=== PATIENT | female | born 1995 | race Caucasian/White ===

== ENCOUNTER 2018-04-06 05:26 | Emergency (ER) | payer OTHER ==
[2018-04-06] MEDS ORDERED: Pepcid 20 MG VIAL IV ONE ×2 (05:49→05:53)
[2018-04-06] MEDS ORDERED: Zofran 4 MG/2 ML VIAL IV ONE ×2 (05:49→07:23)
[2018-04-06] MEDS ORDERED: Sodium Chloride 0.9% 1000 ML 1,000 ML IV STA ×2 (05:49→06:59)
[2018-04-06] MEDS ORDERED: Zofran 4 MG/2 ML VIAL ONE ×2 (05:53→07:27)
[2018-04-06] MEDS ORDERED: Sodium Chloride 0.9% 1000 ML 1,000 ML ONE ×2 (05:53→07:01)
--- NOTE | 2018-04-06 05:58 | ERPHSYRPT ---
- History of Present Illness Historian: patient Exam Limitations: no limitations Patient Subjective Stated Complaint: Pt arrives to ER with c/o N/V since 2199 last night stating ate Chicken Salad and Lobster Bites aroudn 1800 yesterday. Pt states vomited multiple times, but did not some blood mixed in with food in prior emesis but en route here to ER, vomited without blood. Denies pain, fever , diarrhea or any other sx. Triage Nursing Assessment: see above Timing/Duration: hour(s) (8) Activities at Onset: none Quality: aching Abdominal Pain Onset Location: generalized abdomen Pain Radiation: no radiation Severity of Pain-Max: moderate Severity of Pain-Current: moderate Modifying Factors: Improves With: eating Associated Symptoms: loss of appetite, nausea, vomiting Previous symptoms: no prior history <NAZ SORIANO - Last Filed: 04/06/18 07:05> <MARTY HADDAD - Last Filed: 04/06/18 08:50> - History of Present Illness Time Seen by Provider: 04/06/18 05:44 Physician History: Pt states she had chicken at [employer] last night, started vomiting at 22:00 PM. She has vomited x17, denies abdominal pain, chest pain, fever, chills, diarrhea or urinary complaints. She had her last MP 2 weeks ago, denies vaginal bleeding or discharge. (NAZ SORIANO) Allergies/Adverse Reactions: No Known Drug Allergies Allergy (Unverified 04/06/18 05:39) Home Medications: Clomiphene Citrate [Serophene] 50 mg PO BID 04/06/18 [History] - Review of Systems Constitutional: No Symptoms Abdominal/Gastrointestinal: Nausea, Vomiting All Other Systems: Reviewed and Negative <NAZ SORIANO - Last Filed: 04/06/18 07:05> - Past Medical History Pertinent Past Medical History: Yes - Past Surgical History Past Surgical History: Yes Gastrointestinal: Cholecystectomy - Social History Smoking Status: Never smoker Exposure to second hand smoke: No Drug Use: none Patient Lives Alone: No - Female History Hx Last Menstrual Period: March 16 Hx Now: No <NAZ SORIANO - Last Filed: 04/06/18 07:05> - Physical Exam General Appearance: no apparent distress Eye Exam: eyes nml inspection Ears, Nose, Throat Exam: normal ENT inspection, moist mucous membranes Neck Exam: normal inspection, non-tender, supple Respiratory Exam: normal breath sounds, lungs clear Cardiovascular Exam: regular rate/rhythm, normal heart sounds, normal peripheral pulses, No murmur Gastrointestinal/Abdomen Exam: soft, tenderness (mild, generalized), No distention, No mass, No guarding, No ecchymosis, No pulsatile mass, No rebound, No hernia, No organomegaly Pelvic Exam: not done Back Exam: normal inspection, No CVA tenderness Extremity Exam: normal inspection Neurologic Exam: alert, oriented x 3, normal mood/affect Skin Exam: normal color, warm, dry, No rash Lymphatic Exam: No adenopathy SpO2 Interpretation: normal SpO2: 96 Oxygen Delivery: Room Air <NAZ SORIANO - Last Filed: 04/06/18 07:05> - Nursing Vital Signs Nursing Vital Signs: Initial Vital Signs Temperature 98.4 F 04/06/18 05:33 Pulse Rate 117 H 04/06/18 05:33 Respiratory Rate 18 04/06/18 05:33 Blood Pressure 149/84 04/06/18 05:33 O2 Sat by Pulse Oximetry 96 04/06/18 05:33 Pain Scale Pain Intensity 0 - Course Nursing assessment & vital signs reviewed: Yes <NAZ SORIANO - Last Filed: 04/06/18 07:05> - Radiology Exams Chest X-ray Interpretation: Teleradiologist Report, Negative (per Dr Donahue) Abdomen X-ray Interpretation: Teleradiologist Report, Negative (per Dr Donahue) <MARTY HADDAD - Last Filed: 04/06/18 08:50> Ordered Tests: Active Orders 24 hr Category Date Time Status IV Insertion STAT Care 04/06/18 05:49 Active OBSTR/ACUTE ABDOMEN SERIES Stat Exams 04/06/18 05:49 Taken AMYLASE Stat Lab 04/06/18 05:50 Completed CBC W DIFF Stat Lab 04/06/18 05:50 Completed CMP Stat Lab 04/06/18 05:50 Completed CULTURE,URINE Stat Lab 04/06/18 07:10 Received HCG QUALITATIVE,SERUM Stat Lab 04/06/18 05:50 Completed LIPASE Stat Lab 04/06/18 05:50 Completed Lactic Acid Stat Lab 04/06/18 05:48 Results UA W/ MICROSCOPIC Stat Lab 04/06/18 07:10 Completed Medication Summary Discontinued Medications Generic Name Dose Route Start Last Admin Trade Name Lawson PRN Reason Stop Dose Admin Famotidine 20 mg 04/06/18 05:49 04/06/18 06:00 Pepcid 20 Mg Vial IV 04/06/18 05:50 20 mg STAT ONE Administration Famotidine Confirm 04/06/18 05:53 Pepcid 20 Mg Vial Administered 04/06/18 05:54 Dose 20 mg IV .STK-MED ONE Sodium Chloride 1,000 mls @ 999 mls/hr 04/06/18 05:49 04/06/18 06:00 Sodium Chloride 0.9% 1000 Ml IV 04/06/18 06:49 999 mls/hr .Q1H1M STA Administration Sodium Chloride Confirm 04/06/18 05:53 Sodium Chloride 0.9% 1000 Ml Administered 04/06/18 05:54 Dose 1,000 mls @ ud .ROUTE .STK-MED ONE Sodium Chloride 1,000 mls @ 999 mls/hr 04/06/18 06:59 04/06/18 07:29 Sodium Chloride 0.9% 1000 Ml IV 04/06/18 07:59 999 mls/hr .Q1H1M STA Administration Sodium Chloride Confirm 04/06/18 07:01 Sodium Chloride 0.9% 1000 Ml Administered 04/06/18 07:02 Dose 1,000 mls @ ud .ROUTE .STK-MED ONE Metoclopramide HCl 10 mg 04/06/18 06:59 04/06/18 07:04 Reglan 10 Mg/2 Ml IV 04/06/18 07:00 10 mg STAT ONE Administration Metoclopramide HCl Confirm 04/06/18 07:01 Reglan 10 Mg/2 Ml Administered 04/06/18 07:02 Dose 10 mg .ROUTE .STK-MED ONE Ondansetron HCl 4 mg 04/06/18 05:49 04/06/18 06:00 Zofran 4 Mg/2 Ml Vial IV 04/06/18 05:50 4 mg STAT ONE Administration Ondansetron HCl Confirm 04/06/18 05:53 Zofran 4 Mg/2 Ml Vial Administered 04/06/18 05:54 Dose 4 mg .ROUTE .STK-MED ONE Ondansetron HCl 4 mg 04/06/18 07:23 04/06/18 07:29 Zofran 4 Mg/2 Ml Vial IV 04/06/18 07:24 4 mg STAT ONE Administration Ondansetron HCl Confirm 04/06/18 07:27 Zofran 4 Mg/2 Ml Vial Administered 04/06/18 07:28 Dose 4 mg .ROUTE .STK-MED ONE Lab/Rad Data: Laboratory Result Diagrams 04/06/18 05:50 04/06/18 05:50 Laboratory Results 04/06/18 04/06/18 04/06/18 Range/Units 07:10 05:50 05:50 WBC (4.0-10.5) K/mm3 RBC (4.1-5.4) M/mm3 Hgb (12.0-16.0) gm/dl Hct (35-47) % MCV (78-100) fl MCH (26-32) pg MCHC (32-36) g/dl RDW (11.5-14.0) % Plt Count (150-450) K/mm3 MPV (6-9.5) fl Gran % (36.0-66.0) % Eos # (Auto) (0-0.5) Absolute Lymphs (auto) (1.0-4.6) Absolute Monos (auto) (0.0-1.3) Lymphocytes % (24.0-44.0) % Monocytes % (0.0-12.0) % Eosinophils % (0.00-5.0) % Basophils % (0.0-0.4) % Absolute Granulocytes (1.4-6.9) Basophils # (0-0.4) Sodium 144 (137-145) mmol/L Potassium 3.8 (3.5-5.1) mmol/L Chloride 106 (98-107) mmol/L Carbon Dioxide 21 L (22-30) mmol/L Anion Gap 20.3 H (5-15) MEQ/L BUN 15 (7-17) mg/dL Creatinine 0.61 (0.52-1.04) mg/dL Estimated GFR > 60.0 ML/MIN Glucose 140 H (74-106) mg/dL Lactic Acid (0.4-2.0) Calcium 9.6 (8.4-10.2) mg/dL Total Bilirubin 0.80 (0.2-1.3) mg/dL AST 18 (14-36) U/L ALT 13 (0-35) U/L Alkaline Phosphatase 60 (38-126) U/L Serum Total Protein 7.8 (6.3-8.2) g/dL Albumin 4.8 (3.5-5.0) g/dL Amylase 71 (30-110) U/L Lipase 75 (23-300) U/L Serum , Qual NEGATIVE (Negative) Ur Collection Type VOID Urine Color YELLOW (YELLOW) Urine Appearance CLEAR (CLEAR) Urine pH 8.0 (5-6) Ur Specific [place] 1.005 (1.005-1.025) Urine Protein TRACE (Negative) Urine Ketones NEGATIVE (NEGATIVE) Urine Blood 5-10 (0-5) Karl/ul Urine Nitrite NEGATIVE (NEGATIVE) Urine Bilirubin NEGATIVE (NEGATIVE) Urine Urobilinogen NORMAL (0-1) mg/dL Ur Leukocyte Esterase TRACE (NEGATIVE) Urine Microscopic RBC 0-2 (0-2) /HPF Urine Microscopic WBC 0-2 (0-5) /HPF Ur Epithelial Cells RARE (FEW) /HPF Urine Bacteria FEW (NEGATIVE) /HPF Urine Mucus SLIGHT (NEGATIVE) /HPF Urine Culture Reflexed YES (NO) Urine Glucose NEGATIVE (NEGATIVE) mg/dL Slides for Path Review Specimen Received 04/06/18 0710 04/06/18 04/06/18 Range/Units 05:50 05:48 WBC 13.6 H (4.0-10.5) K/mm3 RBC 4.84 (4.1-5.4) M/mm3 Hgb 14.7 (12.0-16.0) gm/dl Hct 42.4 (35-47) % MCV 87.6 (78-100) fl MCH 30.4 (26-32) pg MCHC 34.7 (32-36) g/dl RDW 12.8 (11.5-14.0) % Plt Count 201 (150-450) K/mm3 MPV 11.4 H (6-9.5) fl Gran % 90.9 H (36.0-66.0) % Eos # (Auto) 0.13 (0-0.5) Absolute Lymphs (auto) 0.55 L (1.0-4.6) Absolute Monos (auto) 0.54 (0.0-1.3) Lymphocytes % 4.0 L (24.0-44.0) % Monocytes % 4.0 (0.0-12.0) % Eosinophils % 1.0 (0.00-5.0) % Basophils % 0.1 (0.0-0.4) % Absolute Granulocytes 12.41 H (1.4-6.9) Basophils # 0.01 (0-0.4) Sodium (137-145) mmol/L Potassium (3.5-5.1) mmol/L Chloride (98-107) mmol/L Carbon Dioxide (22-30) mmol/L Anion Gap (5-15) MEQ/L BUN (7-17) mg/dL Creatinine (0.52-1.04) mg/dL Estimated GFR ML/MIN Glucose (74-106) mg/dL Lactic Acid 1.9 (0.4-2.0) Calcium (8.4-10.2) mg/dL Total Bilirubin (0.2-1.3) mg/dL AST (14-36) U/L ALT (0-35) U/L Alkaline Phosphatase (38-126) U/L Serum Total Protein (6.3-8.2) g/dL Albumin (3.5-5.0) g/dL Amylase (30-110) U/L Lipase (23-300) U/L Serum , Qual (Negative) Ur Collection Type Urine Color (YELLOW) Urine Appearance (CLEAR) Urine pH (5-6) Ur Specific [place] (1.005-1.025) Urine Protein (Negative) Urine Ketones (NEGATIVE) Urine Blood (0-5) Karl/ul Urine Nitrite (NEGATIVE) Urine Bilirubin (NEGATIVE) Urine Urobilinogen (0-1) mg/dL Ur Leukocyte Esterase (NEGATIVE) Urine Microscopic RBC (0-2) /HPF Urine Microscopic WBC (0-5) /HPF Ur Epithelial Cells (FEW) /HPF Urine Bacteria (NEGATIVE) /HPF Urine Mucus (NEGATIVE) /HPF Urine Culture Reflexed (NO) Urine Glucose (NEGATIVE) mg/dL Slides for Path Review YES Specimen Received - Progress Progress: improved <NAZ SORIANO - Last Filed: 04/06/18 07:05> - Progress Counseled pt/family regarding: lab results, diagnosis, rad results <MARTY HADDAD - Last Filed: 04/06/18 08:50> - Progress Progress Note: 04/06/18 07:04 Case was discussed with Dr Haddad, he will follow up on her further tests and condition. (NAZ SORIANO) Pt care discussed and care accepted from Dr Soriano at 07:00. 04/06/18 07:22 04/06/18 08:46 After receiving Pepcid 20 mg, Reglan 10 mg, Zofran 8 mg, and 2 L normal saline by IV, the patient is feeling much better. (MARTY HADDAD) <NAZ SORIANO - Last Filed: 04/06/18 07:05> - Departure Time of Disposition: 08:46 Departure Disposition: Home Critical Care Time: No <MARTY HADDAD - Last Filed: 04/06/18 08:50> - Departure Clinical Impression: Vomiting Condition: Stable Referrals: MELINDA MAZA MD [Primary Care Provider] - Additional Instructions: You had an episode of significant vomiting. You were given Pepcid 20 mg, Reglan 10 mg, Zofran 8 mg, and fluids by IV in the ER. You may continue to take Zofran 4 mg ODT every 6 hours as needed for nausea and vomiting. Begin with a liquid diet and advance gradually as tolerated. Follow-up with your family doctor as needed. Prescriptions: Ondansetron ODT 4 MG [Zofran Odt 4 mg] 1 tab PO Q6H PRN PRN #10 tab.rapdis PRN Reason: Nausea/Vomiting
[2018-04-06 06:00] LABS: Lactic Acid 1.9 (0.4-2.0)
[2018-04-06 06:01] LABS: BASOPHIL % 0.1 % (0.0-0.4); Basophil (Absolute #) 0.01 (0-0.4); Eosinophil (Absolute #) 0.13 (0-0.5); Granulocyte Absolute (ANC) 12.41 (1.4-6.9); Granulocytes % 90.9 % (36.0-66.0); Hematocrit 42.4 % (35-47); Hemoglobin 14.7 gm/dl (12.0-16.0); Lymphocyte (Absolute #) 0.55 (1.0-4.6); Mean Cell Volume 87.6 fl (78-100); Mean Corpuscular Hemoglobin 30.4 pg (26-32); Mean Corpuscular Hgb Concent. 34.7 g/dl (32-36); Mean Platelet Volume 11.4 fl (6-9.5); Monocyte (Absolute #) 0.54 (0.0-1.3); Platelet Count 201 K/mm3 (150-450); Red Blood Count 4.84 M/mm3 (4.1-5.4); Red Cell Distribution Width 12.8 % (11.5-14.0); White Blood Count 13.6 K/mm3 (4.0-10.5)
[2018-04-06 06:30] LABS: ALBUMIN 4.8 g/dL (3.5-5.0); ALKALINE PHOSPHATASE 60 U/L (38-126); AMYLASE 71 U/L (30-110); ANION GAP 20.3 MEQ/L (5-15); BLOOD UREA NITROGEN 15 mg/dL (7-17); CHLORIDE 106 mmol/L (98-107); Calcium 9.6 mg/dL (8.4-10.2); Carbon Dioxide 21 mmol/L (22-30); Creatinine 1 0.61 mg/dL (0.52-1.04); Glucose 140 mg/dL (74-106); LIPASE 75 U/L (23-300); Potassium 3.8 mmol/L (3.5-5.1); SGOT/AST 18 U/L (14-36); SGPT/ALT 13 U/L (0-35); SODIUM 144 mmol/L (137-145); Total Protein 7.8 g/dL (6.3-8.2)
[2018-04-06] MEDS ORDERED: Reglan 10 MG/2 ML IV ONE (06:59)
[2018-04-06] MEDS ORDERED: Reglan 10 MG/2 ML ONE (07:01)
[2018-04-06 07:42] LABS: Appearance CLEAR (CLEAR); Bilirubin NEGATIVE (NEGATIVE); Glucose NEGATIVE (NEGATIVE); Ketones NEGATIVE (NEGATIVE); Leukocyte Esterase TRACE (NEGATIVE); Nitrite NEGATIVE (NEGATIVE); Protein,Urine Dip TRACE (Negative); Specific Gravity 1.005 (1.005-1.025); Urobilinogen NORMAL mg/dL (0-1)
[2018-04-06 07:43] LABS: Bacteria FEW /HPF (NEGATIVE); Epithelial Cells RARE /HPF (FEW); Mucus SLIGHT /HPF (NEGATIVE); RBC 0-2 /HPF (0-2); WBC 0-2 /HPF (0-5)
[2018-04-06 07:50] LABS: Slide Review 1 YES
--- NOTE | 2018-04-06 08:43 | XRAY ---
Indication: Nausea and vomiting. Comparison: None 2 views of the abdomen nonacute and nonobstructed with previous cholecystectomy. Solid organs unremarkable. Osseous structures intact with mild scoliosis. Single PA chest demonstrates normal heart, lungs, and bony thorax. Impression: Negative abdomen. Normal 1 view chest.
[2018-04-06 09:00] VITALS: BP 104/69; PULSE 96; O2SAT 97
== END 2018-04-06 09:10 | disposition home or self-care (01) ==
LOC: ED 05:26
DX: R11.2 Nausea with vomiting, unspecified (principal); R63.0 Anorexia; Z79.899 Other long term (current) drug therapy
CPT/HCPCS: 36000; 36415; 74022; 80053; 81000; 82150; 83605; 83690; 84703; 85025; 87086; 96360; 96361; 96374; 96375; 96376; 99284; J2405

== ENCOUNTER 2018-10-03 21:00 | Observation (INO) | payer OTHER, BC ==
[2018-10-03 22:28] VITALS: BP 109/59; PULSE 77
[2018-10-03] MEDS ORDERED: TYLENOL EXTRA STRENGTH 500 MG ONE (23:09)
[2018-10-03] MEDS ORDERED: TYLENOL EXTRA STRENGTH 500 MG PO ONE (23:10)
[2018-10-03 23:28] LABS: Amphetamine,Urine NEGATIVE (NEGATIVE); Barbiturate,Urine NEGATIVE (NEGATIVE); Benzodiazepine,Urine NEGATIVE (NEGATIVE); Cocaine,Urine NEGATIVE (NEGATIVE); Methadone,Urine NEGATIVE (NEGATIVE); Opiate,Urine NEGATIVE (NEGATIVE); PCP,Urine NEGATIVE (NEGATIVE); THC,Urine NEGATIVE (NEGATIVE)
== END 2018-10-03 23:10 | disposition home or self-care (01) ==
LOC: UNDOADMOB 21:00 → OB 21:00 → UNDODISOB 23:10
PROVIDERS: ADMIT Family Medicine; ATTEND Family Medicine
DX: Z34.82 Encounter for supervision of other normal pregnancy, second trimester (principal)
CPT/HCPCS: 80307; G0378; A9270-GY